=== PATIENT | male | born 1950 | race Caucasian/White ===

== ENCOUNTER 2017-04-14 16:53 | Emergency (ER) | payer OTHER ==
[2017-04-14 17:49] VITALS: RESP 16; TEMP 98.4
[2017-04-14] MEDS ORDERED: IBUPROFEN 600 MG TAB PO ONE (17:55)
[2017-04-14] MEDS ORDERED: ACETAMINOPHEN 500 MG TAB PO ONE (18:01)
--- NOTE | 2017-04-14 18:54 | EDPHY ---
H & P Time Seen by Provider: 04/14/17 17:51 HPI/ROS: This patient complained in triage of left leg pain. He describes left lumbar paraspinous pain with intermittent muscle spasms over the past 3 and half weeks with significant increase in symptoms over the past 3 days. The pain is radiating all the way down to his calf in the left leg extending from the back the sciatic notch in down posteriorly. He has associated numbness to the lateral foot more than medial foot and he fell once with superficial abrasion to his knee within the last 3 days due to the decreased sensation in his foot. He reports the back pain is 8/10 intensity worse with some movements. No other exacerbating factors. He has never had back problems before the past 3 and half weeks. ROS: No fevers or chills. No other constitutional symptoms HEENT: No complaints new line pulmonary: No shortness of breath Cardiovascular: No chest pain. No abdominal pain. No pallor to his lower extremities or claudication symptoms. GI: No nausea or vomiting. Again no abdominal pain : No hematuria. No other symptoms Integumentary: No skin rash Neuro: As per HPI. He has noticed any weakness lower extremity. No incontinence. 10 point ROS is otherwise negative Past Medical/Surgical History: Hypertension. Otherwise healthy Social History: He reports 2 small alcoholic beverages per evening. No recreational drugs. Smoking Status: Never smoked Physical Exam: General Appearance: Alert, no distress. Eyes: Pupils equal and round no pallor or injection. ENT, Mouth: Mucous membranes moist. Respiratory: There are no retractions, lungs are clear to auscultation. Cardiovascular: Regular rate and rhythm. No murmur gallop rub he maintains 2+ femoral pulses and popliteal pulses bilateral lower extremities. Gastrointestinal: Abdomen is soft and nontender, no masses, bowel sounds normal. No pulsatile masses Back: No midline tenderness except mild L5 for so. He has paraspinous lumbar tenderness with muscle spasm. Tenderness extends the left sciatic notch. Positive straight leg raise at 10-15 degrees on the left. Negative on the right. He has limited range of motion of his back in for flexion due to the symptoms. Neurological: GCS 15. Patient has decreased light touch sensation lateral foot more than medial foot and leg on the left. He maintains 2+ symmetric patellar DTRs bilaterally but has very weak left Achilles DTR but on 1 to 2+ right Achilles DTR he maintains 5/5 strength in great toe dorsiflexion and plantar flexion bilaterally. No saddle anesthesia. Skin: Warm and dry, no rashes. Psychiatric: Mood and affect are normal DIFFERENTIAL DIAGNOSIS: After history and physical exam differential diagnosis was considered for sciatica with lumbar radiculopathy-question degenerative changes versus disc herniation versus bony abnormality Constitutional: Initial Vital Signs Temperature (C) 36.9 C 04/14/17 17:43 Heart Rate 72 04/14/17 17:43 Respiratory Rate 16 04/14/17 17:43 Blood Pressure 131/72 H 04/14/17 17:43 O2 Sat (%) 95 04/14/17 17:43 O2 Delivery Mode Room Air Allergies/Adverse Reactions: No Known Allergies Allergy (Verified 04/14/17 17:41) Home Medications: Medication Instructions Recorded Aspirin 81mg 06/10/09 Enalapril Maleate 06/10/09 HCTZ (*) 04/14/17 Methocarbamol [Robaxin 750 mg (*)] 750 - 1,500 mg PO QID PRN #30 tab 04/14/17 predniSONE 60 mg PO DAILY #22 tab 04/14/17 traMADol [Ultram 50 mg (*)] 50 - 100 mg PO Q4 PRN #20 tab 04/14/17 MDM/Departure - MDM Diagnostics: Four view lumbar spine x-rays: Degenerative changes at multiple levels with decreased disc height at multiple levels by my interpretation. 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 If radiculopathy persists, despite a period of conservative therapy, then consider lumbar MRI. Medications Given: Discontinued Medications Acetaminophen (Tylenol) 1,000 mg PO EDNOW ONE Stop: 04/14/17 18:02 Last Admin: 04/14/17 18:32 Dose: 1,000 mg Ibuprofen (Motrin) 600 mg PO EDNOW ONE Stop: 04/14/17 17:56 Last Admin: 04/14/17 18:33 Dose: 600 mg ED Course/Re-evaluation: Ibuprofen Tylenol p. o. I counseled patient regarding lumbar radiculopathy. He has sensory deficits in his lower extremities consult corresponding to the S1 more than L5 distribution and weak Achilles DTR. I spoke with Dr. urrutia-the neurosurgeon on-call to facilitate close follow-up for this patient Will start him on prednisone with a taper, methocarbamol and tramadol for pain control. I demonstrated some gentle back stretches and explained that he should return emergency department if he has any significant worsening of symptoms despite the treatment plan. Currently no evidence of cauda equina syndrome. - Depart Disposition: Home, Routine, Self-Care Clinical Impression: Lumbar radiculopathy, acute Sciatica Qualifiers: Laterality: left Qualified Code(s): M54.32 - Sciatica, left side Condition: Good Instructions: Lumbar Radiculopathy (ED) Additional Instructions: Diagnosis: 1. Sciatica with lumbar radiculopathy Plan: Prednisone as prescribed. When he finished the prednisone, then start Ibuprofen 400-600 mg per 6 hours regularly for the next week then as needed. Methocarbamol muscle relaxants as needed. Tylenol in addition as needed for pain. No driving alcohol or work on Vicodin. Starts gentle daily stretches prior to taking muscle relaxants and Vicodin in the morning. 3-5 minutes each of: "Butterfly stretch," "Sphinx stretch", "pigeon stretch", and hamstring stretch. Avoid lifting more than 5-10 pounds until symptoms improve. Call the primary care physician listed below to establish primary care physician for a followup appointment in 3-[address] Loo-neurosurgeon to arrange follow-up appointment for sometime within the next week or so. Go to the emergency department for worsening of your symptoms despite the treatment plan. Stand Alone Forms: Work Excuse Prescriptions: Methocarbamol [Robaxin 750 mg (*)] 750 - 1,500 mg PO QID PRN #30 tab PRN Reason: Muscle Spasms predniSONE 60 mg PO DAILY #22 tab traMADol [Ultram 50 mg (*)] 50 - 100 mg PO Q4 PRN #20 tab PRN Reason: breakthrough pain Referrals: NONE *PRIMARY CARE P,. [Primary Care Provider] - As per Instructions Yogi Levy MD [Medical Doctor] - As per Instructions Dennis Meléndez DO [Doctor of Osteopathy] - As per Instructions
[2017-04-14 19:07] VITALS: BP 128/60; PULSE 78; O2SAT 97
== END 2017-04-14 19:06 | disposition home or self-care (01) ==
LOC: CED 16:53
DX: M54.16 Radiculopathy, lumbar region (principal); M54.32 Sciatica, left side; I10 Essential (primary) hypertension; Z79.82 Long term (current) use of aspirin
CPT/HCPCS: 72100-PO